=== PATIENT | female | born 1945 | race Caucasian/White ===

== ENCOUNTER 2017-11-10 22:17 | Inpatient (IN) | payer OTHER ==
[~2017-11-10] VITALS: Ht 160 cm; Wt 82.5 kg
[2017-11-10 22:20] VITALS: Ht 160 cm; Wt 82.5 kg
[2017-11-10 23:16] LABS: BASOPHIL % 0.6 % (0-2); PLATELET COUNT 164 x10^3mcL (130-400); RED CELL DISTRIBUTION WIDTH 13.9 % (11.5-14.5)
[2017-11-10 23:53] LABS: T3 TOTAL 0.85 ng/mL
[2017-11-10 23:54] LABS: FREE T4 0.95 ng/dL (0.76-1.46); FREE THYROXINE INDEX 2.1 ug/dL (1.4-4.5); T4(THYROXINE) 6.4 ug/dL (4.7-13.3)
[2017-11-10 23:56] LABS: CARBON DIOXIDE 24.8 mmol/L (21-32); CHLORIDE SERUM 98 mmol/L (98-107); CREATININE SERUM 0.8 mg/dL (0.6-1.0); GLUCOSE SERUM 94 mg/dL (74-106); POTASSIUM SERUM 3.2 mmol/L (3.5-5.1); SODIUM SERUM 136 mmol/L (136-145)
[2017-11-11 00:01] LABS: ALKALINE PHOSPHATASE 206 U/L (46-116); ALT/SGPT 26 U/L (14-59); AST/SGOT 52 U/L (15-37); BILIRUBIN TOTAL 1.4 mg/dL (0.20-1.00); CHOLESTEROL 184 mg/dL (<200); HDL CHOLESTEROL 39 mg/dL (40-60); TOTAL PROTEIN, SERUM 7.3 g/dL (6.4-8.2)
[2017-11-11 00:02] LABS: ALBUMIN 2.9 g/dL (3.4-5.0)
[2017-11-11 01:42] LABS: microscopic required? NO
[2017-11-11 01:52] LABS: UA SPECIFIC GRAVITY <=1.005 (1.005-1.035); urine erythrocyte NEGATIVE (NEGATIVE)
[2017-11-11 04:13] LABS: AMPHETAMINE QUAL UR NONE DETECTED (See below)
[2017-11-11 05:11] VITALS: BP 124/81
[2017-11-11 06:36] LABS: CHOLESTEROL/HDL RATIO 4.4; MAGNESIUM 1.6 mg/dL (1.8-2.4); PHOSPHOROUS 3.5 mg/dL (2.5-4.9)
[2017-11-11 09:36] VITALS: BP 135/81
[2017-11-11 14:01] VITALS: BP 125/64
[2017-11-11 16:43] VITALS: BP 123/63
[2017-11-11 20:56] VITALS: BP 133/68
[2017-11-12 05:47] VITALS: BP 116/65
[2017-11-12 06:27] LABS: BASOPHIL % 0.3 % (0-2); RED CELL DISTRIBUTION WIDTH 14.3 % (11.5-14.5)
[2017-11-12 06:39] LABS: CALCIUM 8.3 mg/dL (8.5-10.1); CHLORIDE SERUM 104 mmol/L (98-107); CREATININE SERUM 0.8 mg/dL (0.6-1.0); GLUCOSE SERUM 95 mg/dL (74-106); POTASSIUM SERUM 3.6 mmol/L (3.5-5.1); SODIUM SERUM 137 mmol/L (136-145)
[2017-11-12 07:10] LABS: PLATELET COUNT 104 x10^3mcL (130-400)
[2017-11-12 09:47] VITALS: BP 124/79
[2017-11-12 13:08] VITALS: BP 112/62
[2017-11-12 17:28] VITALS: BP 116/67
[2017-11-12 21:04] VITALS: BP 123/67
[2017-11-13 05:53] VITALS: BP 125/77
[2017-11-13 06:34] LABS: BASOPHIL % 0.2 % (0-2); RED CELL DISTRIBUTION WIDTH 13.9 % (11.5-14.5)
[2017-11-13 06:47] LABS: CALCIUM 8.5 mg/dL (8.5-10.1); CARBON DIOXIDE 23.9 mmol/L (21-32); CHLORIDE SERUM 105 mmol/L (98-107); CREATININE SERUM 0.7 mg/dL (0.6-1.0); GLUCOSE SERUM 88 mg/dL (74-106); PLATELET COUNT 86 x10^3mcL (130-400); POTASSIUM SERUM 3.6 mmol/L (3.5-5.1); SODIUM SERUM 138 mmol/L (136-145)
[2017-11-13 08:59] VITALS: BP 129/69
[2017-11-13 14:44] VITALS: BP 114/68
[2017-11-13] MEDS ORDERED: TYL325 PO (16:30)
[2017-11-13 17:14] VITALS: BP 121/69
[2017-11-13 17:54] VITALS: BP 121/69
== END 2017-11-13 23:35 | DRG 917 ==
LOC: ED 22:17 → DU 11-11 03:05
PROVIDERS: Emergency Medicine; Family Medicine
DX: T51.0X1A Toxic effect of ethanol, accidental (unintentional), initial encounter (principal); G92 Toxic encephalopathy; E44.0 Moderate protein-calorie malnutrition; L97.919 Non-pressure chronic ulcer of unspecified part of right lower leg with unspecified severity; E87.2 Acidosis; E86.0 Dehydration; F10.129 Alcohol abuse with intoxication, unspecified; E87.6 Hypokalemia; S82.831A Other fracture of upper and lower end of right fibula, initial encounter for closed fracture; S80.811A Abrasion, right lower leg, initial encounter; I87.2 Venous insufficiency (chronic) (peripheral); I83.019 Varicose veins of right lower extremity with ulcer of unspecified site; M17.11 Unilateral primary osteoarthritis, right knee; E03.9 Hypothyroidism, unspecified; Z68.31 Body mass index [BMI] 31.0-31.9, adult; Y90.8 Blood alcohol level of 240 mg/100 ml or more; W19.XXXA Unspecified fall, initial encounter; Y92.009 Unspecified place in unspecified non-institutional (private) residence as the place of occurrence of the external cause
CPT/HCPCS: 83880; 84439; 90715; 97110-GP; 97530-GP; 97535-GP; G0480; J0696; J3490; J7030; Q0092

== ENCOUNTER 2018-08-14 06:07 | Emergency (ER) | payer OTHER | END 2018-08-14 11:14 | disposition short-term general hospital (02) | LOC: ED 06:07 ==

== ENCOUNTER 2019-06-12 05:56 | Emergency (ER) | payer OTHER ==
[~2019-06-12] VITALS: Ht 162.6 cm; Wt 79.4 kg
[~2019-06-12 05:56] MED LIST: TYL325 PO
[2019-06-12 06:05] VITALS: Ht 162.6 cm; Wt 79.4 kg
[2019-06-12 07:45] LABS: BASOPHIL % 0.3 % (0-2); PLATELET COUNT 202 x10^3mcL (130-400)
[2019-06-12 07:47] LABS: RED CELL DISTRIBUTION WIDTH 15.8 % (11.5-14.5)
[2019-06-12 07:59] LABS: microscopic required? YES; urine erythrocyte 1+ (NEGATIVE)
[2019-06-12 08:11] LABS: CALCIUM 8.7 mg/dL (8.5-10.1); CARBON DIOXIDE 24.4 mmol/L (21-32); CHLORIDE SERUM 104 mmol/L (98-107); CREATININE SERUM 0.9 mg/dL (0.6-1.0); GLUCOSE SERUM 105 mg/dL (74-106); POTASSIUM SERUM 3.7 mmol/L (3.5-5.1); SODIUM SERUM 142 mmol/L (136-145)
[2019-06-12 08:22] LABS: ALBUMIN 3.8 g/dL (3.4-5.0); ALKALINE PHOSPHATASE 154 U/L (46-116); ALT/SGPT 32 U/L (14-59); AST/SGOT 32 U/L (15-37); BILIRUBIN TOTAL 0.3 mg/dL (0.20-1.00); HDL CHOLESTEROL 52 mg/dL (40-60); LIPASE 671 IU/L (73-393); MAGNESIUM 2.1 mg/dL (1.8-2.4); T4(THYROXINE) 8.3 ug/dL (4.7-13.3)
[2019-06-12 08:23] LABS: CHOLESTEROL 220 mg/dL (<200); TOTAL PROTEIN, SERUM 8.5 g/dL (6.4-8.2)
[2019-06-12 08:53] LABS: AMPHETAMINE QUAL UR NONE DETECTED (See below)
[2019-06-12] MEDS ORDERED: XARELTO STARTER20 MG (09:40)
[2019-06-12 10:41] VITALS: BP 124/41
== END 2019-06-12 14:15 | disposition left against medical advice (07) ==
LOC: ED 05:56 → DU 11:10
PROVIDERS: Emergency Medicine
DX: G92 Toxic encephalopathy (principal); S81.801A Unspecified open wound, right lower leg, initial encounter; R74.0 Nonspecific elevation of levels of transaminase and lactic acid dehydrogenase [LDH]; E66.9 Obesity, unspecified; I10 Essential (primary) hypertension; W18.30XA Fall on same level, unspecified, initial encounter; Y93.89 Activity, other specified; Y92.89 Other specified places as the place of occurrence of the external cause; Y99.8 Other external cause status
CPT/HCPCS: 36600; 82962; 83880; G0378; G0480; J0295; J3490; J7030; J7040; Q0092

== ENCOUNTER 2019-06-12 19:55 | Emergency (ER) | payer OTHER ==
[~2019-06-12] VITALS: Ht 160 cm; Wt 77.1 kg
[~2019-06-12 19:55] MED LIST changes: +XARELTO STARTER20 MG
[2019-06-12 20:00] VITALS: Ht 160 cm; Wt 77.1 kg
[2019-06-12 20:50] LABS: BASOPHIL % 0.7 % (0-2); PLATELET COUNT 221 x10^3mcL (130-400); RED CELL DISTRIBUTION WIDTH 15.8 % (11.5-14.5)
[2019-06-12 21:15] LABS: ALKALINE PHOSPHATASE 137 U/L (46-116); ALT/SGPT 37 U/L (14-59); AST/SGOT 120 U/L (15-37); BILIRUBIN TOTAL 0.31 mg/dL (0.20-1.00); CALCIUM 8.4 mg/dL (8.5-10.1); CARBON DIOXIDE 23.7 mmol/L (21-32); CHLORIDE SERUM 109 mmol/L (98-107); CREATININE SERUM 0.9 mg/dL (0.6-1.0); GLUCOSE SERUM 89 mg/dL (74-106); POTASSIUM SERUM 3.9 mmol/L (3.5-5.1); SODIUM SERUM 146 mmol/L (136-145); TOTAL PROTEIN, SERUM 7.2 g/dL (6.4-8.2)
[2019-06-12 21:20] LABS: ALBUMIN 3.1 g/dL (3.4-5.0)
[2019-06-13 01:16] VITALS: BP 110/60
== END 2019-06-13 01:16 | disposition home or self-care (01) ==
LOC: ED 19:55
PROVIDERS: Emergency Medicine
DX: F10.129 Alcohol abuse with intoxication, unspecified (principal); L97.911 Non-pressure chronic ulcer of unspecified part of right lower leg limited to breakdown of skin; I10 Essential (primary) hypertension; Y90.8 Blood alcohol level of 240 mg/100 ml or more
CPT/HCPCS: G0480; J0696; J7030; J7060